=== PATIENT | female | born 1965 | race Two or more races ===

== ENCOUNTER → 2024-12-04 12:32 | Outpatient (REF) | payer BC, SELFPAY | LOC: HWWDC 12:32 | PROVIDERS: ATTENDING PHYSICIAN Obstetrics & Gynecology Gynecology; FAMILY PHYSICIAN Internal Medicine | DX: Z12.31 Encounter for screening mammogram for malignant neoplasm of breast (principal) | CPT/HCPCS: 77063; 77067 ==

== ENCOUNTER → 2025-03-07 09:33 | Outpatient (REF) | payer BC, SELFPAY | LOC: HWRAD 09:33 | PROVIDERS: ATTENDING PHYSICIAN Internal Medicine | DX: R10.13 Epigastric pain (principal) | CPT/HCPCS: 76700 ==

== ENCOUNTER → 2025-06-26 09:14 | Outpatient (REF) | payer BC, SELFPAY | LOC: RAD 09:14 | PROVIDERS: ATTENDING PHYSICIAN Otolaryngology; FAMILY PHYSICIAN Internal Medicine | DX: K21.9 Gastro-esophageal reflux disease without esophagitis (principal); R11.2 Nausea with vomiting, unspecified | CPT/HCPCS: 74221 ==

== ENCOUNTER 2025-07-25 06:15 | Day surgery (SDC) | payer BC, SELFPAY ==
[2025-07-18 11:37] LABS: Hematocrit 37.1 % (37.0-47.0); Hemoglobin 12.5 g/dL (12.0-16.0); Mean Corp Hgb Conc. 33.7 g/dL (33.0-37.0); Mean Corpuscular Volume 90.9 fL (81.0-99.0); Platelet Count 257 10^3/uL (130-400); Red Cell Dist. Width 11.8 % (11.5-14.5)
[2025-07-18 12:29] LABS: ALT (SGPT) 38 U/L (0-35); AST (SGOT) 28 U/L (14-36); Albumin 4.7 g/dl (3.5-5.0); Alkaline Phosphatase 83 U/L (38-126); Blood Urea Nitrogen 15 mg/dl (7-17); Calcium 9.3 mg/dl (8.4-10.2); Carbon Dioxide 28 mmol/L (22-30); Chloride 103 mmol/L (98-107); Glucose 101 mg/dl (70-99); Potassium 4.3 mmol/L (3.5-5.1); Sodium 139 mmol/L (135-145); Total Protein 7.8 g/dl (6.3-8.2); eGFR > 60.00
[2025-07-18 13:40] VITALS: BMI 25.3
[2025-07-25] VITALS (8 sets, daily range): BP systolic 118–137; BP diastolic 70–85; BMI 25.3
[2025-07-25] MEDS: TYLENOL 1000 MG PO (12:00)
[2025-07-25] MEDS: NORMOSOL-R/PLASMALYTE-A 1000 IV (12:18)
[2025-07-25] MEDS: DILAUDID 0.25 MG IV (15:46)
[2025-07-25] MEDS: ZOFRAN 4 MG IV (17:30)
[2025-07-25] MEDS: TYLENOL 650 MG PO (18:17)
== END 2025-07-25 18:58 | disposition home or self-care (01) ==
LOC: SDS 06:15
PROVIDERS: ATTENDING PHYSICIAN Surgery; FAMILY PHYSICIAN Internal Medicine
DX: K80.10 Calculus of gallbladder with chronic cholecystitis without obstruction (principal); K82.8 Other specified diseases of gallbladder
CPT/HCPCS: 47563; 36415; 74300; 76000; 80053; 85027; 88304; 93005; A4300